=== PATIENT | male | born 1995 | race Caucasian/White ===

== ENCOUNTER 2019-09-29 15:29 | Inpatient (IN) | payer BC, OTHER ==
[2019-09-29] MEDS ORDERED: HYDROmorphone 0.5 MG/0.5 ML SYRINGE IVP STA ×4 (15:55→18:14)
[2019-09-29] MEDS ORDERED: SODIUM CHLORIDE 0.9% 1,000 ML IV STA (15:55)
[2019-09-29] MEDS ORDERED: ONDANSETRON 4 MG/2 ML VIAL IVP STA (15:55)
[2019-09-29 16:29] LABS: Basophils % (A) 0 %; Eosinophils % (A) 0 %; HCT 42.2 % (39.0-53.0); HGB 13.9 gm/dL (13.0-17.5); Lymphocytes # (A) 0.8 k/uL (1.0-4.8); Lymphocytes % (A) 4 %; MCH 28.8 pg (25.0-35.0); MCV 87.4 fL (80.0-100.0); Monocytes # (A) 1.2 k/uL (0-1.0); Monocytes % (A) 6 %; Neutrophils # (A) 17.4 k/uL (1.3-7.7); Neutrophils % (A) 89 %; Platelet Count 206 k/uL (150-450); RBC 4.82 m/uL (4.30-5.90); RDW 13.1 % (11.5-15.5); WBC 19.5 k/uL (3.8-10.6)
--- NOTE | 2019-09-29 16:47 | ED ---
General Adult HPI - General Chief complaint: Abdominal Pain Stated complaint: abd pain, nausea/vomiting Time Seen by Provider: 09/29/19 15:39 Source: patient, RN notes reviewed Mode of arrival: ambulatory Limitations: no limitations - History of Present Illness Initial comments: 24-year-old male presents to the emergency department for a chief complaint of abdominal pain. Patient has had abdominal pain in the lower abdomen worse on the right side since last night. States it has steadily worsened. Patient started to have vomiting with this today. Father states he thought it was likely a GI bug but wanted to make sure. Patient has not had any fevers.patient does not have a surgical history. Patient has no other complaints at this time including shortness of breath, chest pain, headache, or visual changes. - Related Data Home Medications Medication Instructions Recorded Confirmed No Known Home Medications 11/09/14 09/29/19 Allergies Allergy/AdvReac Type Severity Reaction Status Date / Time No Known Allergies Allergy Verified 09/29/19 18:08 Review of Systems ROS Statement: Those systems with pertinent positive or pertinent negative responses have been documented in the HPI. ROS Other: All systems not noted in ROS Statement are negative. Past Medical History Past Medical History: No Reported History History of Any Multi-Drug Resistant Organisms: None Reported Past Surgical History: No Surgical Hx Reported Past Psychological History: No Psychological Hx Reported Past Alcohol Use History: None Reported Past Drug Use History: None Reported - Past Family History Father Family Medical History: No Reported History General Exam Limitations: no limitations General appearance: alert, in no apparent distress Head exam: Present: atraumatic, normocephalic, normal inspection Eye exam: Present: normal appearance, PERRL, EOMI. Absent: scleral icterus, conjunctival injection, periorbital swelling ENT exam: Present: normal exam, mucous membranes moist Neck exam: Present: normal inspection. Absent: tenderness, meningismus, lymphadenopathy Respiratory exam: Present: normal lung sounds bilaterally. Absent: respiratory distress, wheezes, rales, rhonchi, stridor Cardiovascular Exam: Present: regular rate, normal rhythm, normal heart sounds. Absent: systolic murmur, diastolic murmur, rubs, gallop, clicks GI/Abdominal exam: Present: soft, tenderness (Tenderness noted to the right lower quadrant and suprapubic area.), normal bowel sounds. Absent: distended, guarding, rebound, rigid Neurological exam: Present: alert Course Vital Signs 09/29/19 09/29/19 09/29/19 15:30 17:20 18:12 Temperature 98.7 F 102.6 F H Pulse Rate 74 86 91 Respiratory 16 20 26 H Rate Blood Pressure 131/71 123/82 142/76 O2 Sat by Pulse 98 98 98 Oximetry 09/29/19 09/29/19 18:25 19:05 Temperature 102.6 F H 99.4 F Pulse Rate 85 86 Respiratory 24 18 Rate Blood Pressure 139/70 128/72 O2 Sat by Pulse 97 98 Oximetry Medical Decision Making - Medical Decision Making Vitals stable presentation to the emergency room. However patient does have tenderness to the right lower quadrant. Guarding present on exam. CBC reveals of the psychosis with a left shift. CMP unremarkable. CT abdomen and pelvis shows a dilated fluid-filled appendix with appendicoliths consistent with appen dicitis. Minimal free fluid in pelvis, ruptured appendix is possible. Patient was started on Zosyn. Dr. Rivers evaluated patient and contacted Dr. Schulte right away. He recommends continuing Zosyn and pain medication. Patient to be nothing by mouth, ice chips only. - Lab Data Result diagrams: 09/29/19 16:20 09/29/19 16:20 Lab Results 09/29/19 09/29/19 09/29/19 Range/Units 16:20 16:20 16:20 WBC 19.5 H (3.8-10.6) k/uL RBC 4.82 (4.30-5.90) m/uL Hgb 13.9 (13.0-17.5) gm/dL Hct 42.2 (39.0-53.0) % MCV 87.4 (80.0-100.0) fL MCH 28.8 (25.0-35.0) pg MCHC 33.0 (31.0-37.0) g/dL RDW 13.1 (11.5-15.5) % Plt Count 206 (150-450) k/uL Neutrophils % 89 % Lymphocytes % 4 % Monocytes % 6 % Eosinophils % 0 % Basophils % 0 % Neutrophils # 17.4 H (1.3-7.7) k/uL Lymphocytes # 0.8 L (1.0-4.8) k/uL Monocytes # 1.2 H (0-1.0) k/uL Eosinophils # 0.0 (0-0.7) k/uL Basophils # 0.0 (0-0.2) k/uL Sodium 136 L (137-145) mmol/L Potassium 4.0 (3.5-5.1) mmol/L Chloride 99 (98-107) mmol/L Carbon Dioxide 28 (22-30) mmol/L Anion Gap 9 mmol/L BUN 10 (9-20) mg/dL Creatinine 0.82 (0.66-1.25) mg/dL Est GFR (CKD-EPI)AfAm >90 (>60 ml/min/1.73 sqM) Est GFR (CKD-EPI)NonAf >90 (>60 ml/min/1.73 sqM) Glucose 130 H (74-99) mg/dL Plasma Lactic Acid Randell 1.0 (0.7-2.0) mmol/L Calcium 9.5 (8.4-10.2) mg/dL Total Bilirubin 1.4 H (0.2-1.3) mg/dL AST 17 (17-59) U/L ALT 15 (4-49) U/L Alkaline Phosphatase 52 (38-126) U/L Total Protein 7.3 (6.3-8.2) g/dL Albumin 4.7 (3.5-5.0) g/dL Amylase 64 (30-110) U/L Lipase 45 (23-300) U/L Disposition Clinical Impression: Appendicitis Narrative: possible rupture Disposition: ADMITTED IP TO THIS [facility] Is patient prescribed a controlled substance at d/c from ED?: No Time of Disposition: 18:18
[2019-09-29 16:58] LABS: ALT 15 U/L (4-49); AST 17 U/L (17-59); African American GFR (CKD) >90 (>60 ml/min/1.73 sqM); Albumin 4.7 g/dL (3.5-5.0); Alkaline Phosphatase 52 U/L (38-126); Amylase 64 U/L (30-110); Anion Gap 9 mmol/L; Blood Urea Nitrogen 10 mg/dL (9-20); Calcium 9.5 mg/dL (8.4-10.2); Carbon Dioxide 28 mmol/L (22-30); Chloride 99 mmol/L (98-107); Glucose 130 mg/dL (74-99); Non-African American GFR(CKD) >90 (>60 ml/min/1.73 sqM); Sodium 136 mmol/L (137-145); Total Bilirubin 1.4 mg/dL (0.2-1.3); Total Protein 7.3 g/dL (6.3-8.2)
--- NOTE | 2019-09-29 17:33 | CT ---
EXAMINATION TYPE: CT abdomen pelvis w con DATE OF EXAM: 09/29/2019 COMPARISON: None HISTORY: Right lower quadrant pain. CT DLP: 1044.3 mGycm Automated exposure control for dose reduction was used. CONTRAST: Performed with IV Contrast, patient injected with 100 mL of Isovue 300. Multiple axial sections were obtained from the diaphragm to the floor the pelvis with IV contrast. Lung bases are clear. There is no pleural effusion. Heart size is normal. There is no pericardial eff usion. Liver spleen stomach pancreas gallbladder appear normal. Bile ducts are not dilated. There is no adrenal mass. Kidneys show satisfactory contrast opacification. There is no hydronephrosis. Ureter s are not dilated. There is no retroperitoneal adenopathy. Bladder distends smoothly. There is no ing uinal hernia. There is small amount of free fluid in the pelvis. There is dilated fluid-filled appendix that measures up to 13 mm. There are 2 appendicoliths that barron sure up to 7 mm. There is no evidence of a bowel obstruction. There is no free air. There is no ascites. Lumbar vertebra have normal spacing and alignment. Posterior elements are intact. Bony pelvis is inta ct. IMPRESSION: Dilated fluid-filled appendix with appendicoliths consistent with appendicitis. Minimal free fluid in the pelvis. Ruptured appendix is possible.
[2019-09-29] MEDS ORDERED: PIPERACILLIN-TAZOBACTAM 3.375 GM in SODIUM CHLORIDE 0.9% 100 ML IVPB STA (17:51)
[2019-09-29] MEDS ORDERED: ACETAMINOPHEN IV (For NPO) 1,000 MG in EMPTY BAG 1 BAG IVPB STA (18:14)
[2019-09-29] MEDS ORDERED: KETOROLAC 30 MG/ML 1 ML VIAL IVP STA (18:17)
[2019-09-29] MEDS ORDERED: ONDANSETRON 4 MG/2 ML VIAL IVP PRN (18:18)
[2019-09-29] MEDS ORDERED: HYDROmorphone 0.5 MG/0.5 ML SYRINGE IVP PRN (18:18)
[2019-09-29] MEDS ORDERED: MORPHINE SULFATE 4 MG/ML SYRINGE IV PRN (18:18)
[2019-09-29] MEDS ORDERED: NALOXONE 0.4 MG/ML 1 ML VIAL IV PRN (18:18)
[2019-09-29] MEDS: SODIUM CHLORIDE 0.9% 1,000 ML IV SCH (18:23)
[2019-09-29] MEDS ORDERED: HEPARIN SODIUM,PORCINE 5,000 UNIT/ML 1 ML VIAL SQ STA (19:14)
--- NOTE | 2019-09-29 19:14 | P.GSHP ---
History of Present Illness H&P Date: 09/29/19 CHIEF COMPLAINT: Right lower quadrant abdominal pain with appendicitis for over 1 day. HISTORY OF PRESENT ILLNESS: The patient is a previously healthy 24-year-old male who presents with less than 1.5 day history of periumbilical to right lower quadrant abdominal pain that is crampy dull ache in nature. He reported feeling well as of yesterday afternoon about 3 PM when he had pizza. Two hours later, he had moderate to severe right lower quadrant abdominal pain. He had barely 2 hours of sleep last night. This morning, he reported some relief. The pain become progressively worse during the day hence his presentation to the emergency room. No reports of prior abdominal pain. No chills. White blood cell count on presentation almost 20,000. CT abdomen and pelvis consistent with possible ruptured appendicitis PAST MEDICAL HISTORY: See list and reviewed PAST SURGICAL HISTORY: See list and reviewed CURRENT MEDICATIONS: See list and reviewed ALLERGIES: See list and reviewed SOCIAL HISTORY: See list and reviewed FAMILY HISTORY: No Crohns disease and ulcerative colitis. REVIEW OF ORGAN SYSTEMS: CONSTITUTIONAL: Present fever, no chills. Denies recent weight loss. HEENT: Denies any trouble with vision, hearing or nosebleeds. No difficulty swallowing. LYMPHATIC: The patient denies any lumps and bumps around the neck. ENDOCRINE: Denies any thyroid disorders. Denies any blood sugar glucose intolerance. RESPIRATORY: Denies shortness of breath including chronic cough. CARDIOVASCULAR: Denies history of chest pain with exertion. GASTROINTESTINAL: Denies regurgitation of bile at night as well as intermittent nausea. No blood in stools. GENITOURINARY: Denies any blood in urine or increased urinary frequency. ` MUSCULOSKELETAL: Denies current joint arthritis. NEUROLOGIC: Denies any numbness or tingling along the distal extremities. No s eizure disorders or headaches. PSYCHIATRIC: Denies any depression or suicidal ideation. HEMATOLOGIC: Denies any abnormal bleeding or bruising. PHYSICAL EXAMINATION: GENERAL: A 24-year-old male in mild distress. Pleasant. HEENT: No sclera icterus. Extraocular movements grossly intact. Moist buccal mucosa. Head is atraumatic, normocephalic. Hears conversational speech. No nasal drainage. NECK: Supple without lymphadenopathy. No JV distention. CHEST: Non-labored respirations and equal bilateral excursions. CARDIOVASCULAR: Regular rate and rhythm. Palpable 2+ radial pulses. ABDOMEN: Soft, tender at the right lower quadrant with peritonitis MUSCULOSKELETAL: No clubbing, cyanosis or edema. NEUROLOGIC: No focal or lateralizing signs. PSYCH: Appropriate affect. Alert and oriented to person, place and time. SKIN: Well perfused. Good skin turgor. LABS: Reviewed. White blood cell count elevated over 19,000. STUDIES: CT of the abdomen and pelvis independently reviewed with appendicolith and dilation of the appendix. Free fluid identified within the pelvis tracking along the right paracolic gutter. This my independent interpretation. ASSESSMENT: 1. Acute appendicitis with sepsis PLAN: 1. I have discussed benefits and risks of laparoscopic appendectomy. 2. Bilateral SCDs. 3. Antibiotics intravenous to address moderate leukocytosis with underlying sepsis 4. Inpatient hospitalization described beyond 2 nights secondary to presentation of sepsis and possible rupture. 5. Patient is at elevated risk with rupture including delayed intra-abdominal abscesses also described and require close observation post-op for 2 to 4 weeks. 6. Possibility of prolonged antibiotics including oral versus IV antibiotics postop also reviewed. Thank you very much for allowing me to participate in the care of your patient. Past Medical History Past Medical History: No Reported History History of Any Multi-Drug Resistant Organisms: None Reported Past Surgical History: No Surgical Hx Reported Past Psychological History: No Psychological Hx Reported Past Alcohol Use History: None Reported Past Drug Use History: None Reported Medications and Allergies Home Medications Medication Instructions Recorded Confirmed Type No Known Home Medications 11/09/14 09/29/19 History Allergies Allergy/AdvReac Type Severity Reaction Status Date / Time No Known Allergies Allergy Verified 09/29/19 18:08 Surgical - Exam Vital Signs Temp Pulse Resp BP Pulse Ox 98.7 F 74 16 131/71 98 09/29/19 15:30 09/29/19 15:30 09/29/19 15:30 09/29/19 15:30 09/29/19 15:30 Results - Labs 09/29/19 16:20 09/29/19 16:20 Abnormal Lab Results - Last 24 Hours (Table) 09/29/19 09/29/19 Range/Units 16:20 16:20 WBC 19.5 H (3.8-10.6) k/uL Neutrophils # 17.4 H (1.3-7.7) k/uL Lymphocytes # 0.8 L (1.0-4.8) k/uL Monocytes # 1.2 H (0-1.0) k/uL Sodium 136 L (137-145) mmol/L Glucose 130 H (74-99) mg/dL Total Bilirubin 1.4 H (0.2-1.3) mg/dL Diabetes panel 09/29/19 Range/Units 16:20 Sodium 136 L (137-145) mmol/L Potassium 4.0 (3.5-5.1) mmol/L Chloride 99 (98-107) mmol/L Carbon Dioxide 28 (22-30) mmol/L BUN 10 (9-20) mg/dL Creatinine 0.82 (0.66-1.25) mg/dL Glucose 130 H (74-99) mg/dL Calcium 9.5 (8.4-10.2) mg/dL AST 17 (17-59) U/L ALT 15 (4-49) U/L Alkaline Phosphatase 52 (38-126) U/L Total Protein 7.3 (6.3-8.2) g/dL Albumin 4.7 (3.5-5.0) g/dL Calcium panel 09/29/19 Range/Units 16:20 Calcium 9.5 (8.4-10.2) mg/dL Albumin 4.7 (3.5-5.0) g/dL Pituitary panel 09/29/19 Range/Units 16:20 Sodium 136 L (137-145) mmol/L Potassium 4.0 (3.5-5.1) mmol/L Chloride 99 (98-107) mmol/L Carbon Dioxide 28 (22-30) mmol/L BUN 10 (9-20) mg/dL Creatinine 0.82 (0.66-1.25) mg/dL Glucose 130 H (74-99) mg/dL Calcium 9.5 (8.4-10.2) mg/dL Adrenal panel 09/29/19 Range/Units 16:20 Sodium 136 L (137-145) mmol/L Potassium 4.0 (3.5-5.1) mmol/L Chloride 99 (98-107) mmol/L Carbon Dioxide 28 (22-30) mmol/L BUN 10 (9-20) mg/dL Creatinine 0.82 (0.66-1.25) mg/dL Glucose 130 H (74-99) mg/dL Calcium 9.5 (8.4-10.2) mg/dL Total Bilirubin 1.4 H (0.2-1.3) mg/dL AST 17 (17-59) U/L ALT 15 (4-49) U/L Alkaline Phosphatase 52 (38-126) U/L Total Protein 7.3 (6.3-8.2) g/dL Albumin 4.7 (3.5-5.0) g/dL Assessment and Plan (1) Ruptured appendicitis Current Visit: Yes Status: Acute Code(s): K35.32 - ACUTE APPENDICITIS WITH PERF AND LOC PERITONITIS, W/O ABSCS SNOMED Code(s): 40227659 (2) Peritonitis Current Visit: Yes Status: Acute Code(s): K65.9 - PERITONITIS, UNSPECIFIED SNOMED Code(s): 75250988 (3) Peritonitis (acute) generalized Current Visit: Yes Status: Acute Code(s): K65.0 - GENERALIZED (ACUTE) PERITONITIS SNOMED Code(s): 95151036 (4) Sepsis Current Visit: Yes Status: Acute Code(s): A41.9 - SEPSIS, UNSPECIFIED ORGANISM SNOMED Code(s): 25505279
[2019-09-29] MEDS ORDERED: ONDANSETRON 4 MG/2 ML VIAL ONE (19:25)
[2019-09-29] MEDS ORDERED: ROCURONIUM BROMIDE 10 MG/ML 5 ML VIAL IV ONE (19:25)
[2019-09-29] MEDS ORDERED: HYDROmorphone (PF) 1 MG/ML ONE (19:25)
[2019-09-29] MEDS ORDERED: NEOSTIGMINE 1 MG/ML 10 ML VIAL ONE (19:25)
[2019-09-29] MEDS ORDERED: PROPOFOL 10 MG/ML 20 ML VIAL IV ONE (19:25)
[2019-09-29] MEDS ORDERED: DEXAMETHASONE SOD PHOSPHATE 10 MG/ML 1 ML VIAL ONE (19:25)
[2019-09-29] MEDS ORDERED: HEPARIN SODIUM,PORCINE 10,000 UNIT/ML 1 ML VIAL ONE (19:25)
[2019-09-29] MEDS ORDERED: LIDOCAINE 1% INJ 10MG/ML (20 ML MDV) ONE (19:25)
[2019-09-29] MEDS ORDERED: GLYCOPYRROLATE 0.2 MG/ML 2 ML VIAL ONE (19:25)
[2019-09-29] MEDS ORDERED: fentaNYL (PF) 50 MCG/ML 2 ML AMP ONE (19:25)
[2019-09-29] MEDS ORDERED: SUCCINYLCHOLINE CHLORIDE 100 MG/5 ML SYR IV ONE (19:25)
[2019-09-29] MEDS ORDERED: MIDAZOLAM 2 MG/2 ML VIAL ONE (19:25)
[2019-09-29] MEDS ORDERED: IV FLUID CONTINUATION 600 ML IV ONE (19:50)
[2019-09-29] MEDS ORDERED: BUPIVACAIN-EPI 0.25%-1:200,000 30 ML VIAL SQ ONE (20:14)
[2019-09-29] MEDS ORDERED: LACTATED RINGERS 1,000 ML IV ONE (20:31)
--- NOTE | 2019-09-29 21:07 | P.OP ---
Date of Procedure: 09/29/19 Description of Procedure: SURGEON: DARY CROOKS MD ELECTRONIC CONSOLE DISPLAY OPERATOR: None. PREOPERATIVE DIAGNOSES: 1. Acute appendicitis with sepsis 2. Generalized peritonitis 3. Leukocytosis with fever and tachypnea POSTOPERATIVE DIAGNOSES: 1. Acute rupture appendicitis with sepsis 2. Generalized peritonitis 3. Leukocytosis with fever and tachypnea 4. Intra-abdominal abscess with peritonitis. PROCEDURES PERFORMED: 1. Diagnostic laparoscopy. 2. Laparoscopic appendectomy. 3. Laparoscopic drainage of intra-abdominal abscess, 50 mL 4. Abdominal washout 2 L normal saline ANESTHESIA: General with 30 mL 0.25% Marcaine with epinephrine. ESTIMATED BLOOD LOSS: 10 mL. SPECIMENS REMOVED: 1. Appendix. 2. Aerobic and anaerobic cultures of intra-abdominal abscess, perforated appendicitis COMPLICATIONS: None. OPERATIVE FINDINGS: 1. Acute appendicitis with micro-perforation of the proximal body of the appendix. 2. Gallbladder dilated 3. Unremarkable small bowel and terminal ileum. 4. Terminal ileum unremarkable. 5. Liver unremarkable. 6. The colon was unremarkable 7. Purulent peritoneal fluid consistent with intra-abdominal abscess, 50 mL evacuated. 8. Bilateral indirect inguinal hernia INDICATIONS: The patient is an 24-year-old male who presents with 1.5 day history of right lower quadrant abdominal pain. He presented with leukocytosis, fevers, tachypnea and peritonitis. CT of the abdomen and pelvis was obtained consistent with acute appendicitis with possible rupture. Benefits and risks, including possibility of open technique were described at length. Informed consent was obtained. DESCRIPTION OR PROCEDURE: Patient was brought to the operating room, laid in supine position. After general induction, the abdomen was prepped and draped in standard sterile fashion. Prior to incision, a timeout protocol was confirmed with surgical team regarding patient's name including procedure to be performed. Preoperative medications of antibiotics were given intraoperatively. Additionally, bilateral SCDs were placed. A transverse 5-mm left upper quadrant incision was made after localizing the skin with anesthetic. A 0 degree 5 mm laparoscopic trocar entry was performed and entered into the peritoneal cavity. The abdomen was insufflated to 15 mmHg of pressure, which was tolerated well. Diagnostic laparoscopy demonstrated no injury to bowel, viscera or mesentery. The terminal ileum was unremarkable including small bowel. Gallbladder was distended. Colon was also unremarkable. Bilateral indirect inguinal hernias were identified. A 5 mm port was placed just above the pubis under direct visualization. A systematic view within the abdominal cavity was started with the small bowel which was unremarkable. The appendix was dilated consistent with microperforation along the proximal body of the appendix. The peritoneal fluid was purulent consistent with intra-abdominal abscess from perforated appendicitis. Another 12 mm port was placed along the left lateral abdominal wallfor firing of a stapler. A 45 mm Endo DEL echelon stapler was fired along the base of the appendix using a oliveros vascular load after mobilizing the mesoappendix using a Harmonic scalpel. The staple line was checked for hemostasis. The specimen was removed from the abdominal cavity via the 12 mm port. The fascial defect was less than 8 mm in size. To address the purulent peritoneal fluid, the abscess was evacuated with cultures obtained using Leukotrap followed by abdominal lavage 2 L normal saline until the aspirate was clear and dried using 4 x 4 gauze. Aerobic and anaerobic cultures were obtained. All instruments and pneumoperitoneum were evacuated from the abdominal cavity. A total of 30 mL 0.25% Marcaine with epinephrine was infiltrated in all wounds for postop analgesia. The skin was cleansed with normal saline and hydroperoxide. Exofin was applied to the skin after reapproximating the incisions with 4-0 Monocryl as described. At the end of the procedure, needle, sponge, and instrument count was verified correct by surgical nurse. The patient had tolerated the procedure well, was taken to the postanesthesia care unit in stable condition. Intraoperative abdominal films were described and discussed with family who were overall pleased with level of care.
[2019-09-29] MEDS ORDERED: METOCLOPRAMIDE 5 MG/ML 2 ML VIAL IVP PRN (22:00)
[2019-09-29] MEDS: KETOROLAC 30 MG/ML 1 ML VIAL IVP SCH (22:08)
[2019-09-29] MEDS: FAMOTIDINE 20 MG TAB PO SCH (22:20)
[2019-09-29] MEDS: DOCUSATE 100 MG CAP PO SCH (22:20)
[2019-09-29] MEDS: PIPERACILLIN-TAZOBACTAM 3.375 GM in SODIUM CHLORIDE 0.9% 100 ML IVPB SCH (23:40)
[2019-09-30] MEDS ORDERED: PROMETHAZINE 25 MG TAB PO PRN
[2019-09-30] MEDS: ACETAMINOPHEN TAB 325 MG TAB PO SCH ×2 (00:18→06:13)
[2019-09-30 02:02] LABS: Appearance,Urine Clear (Clear); Bilirubin,Urine Negative (Negative); Blood,Urine Negative (Negative); Color,Urine Yellow; Glucose,Urine (UA) 3+ (Negative); Ketones,Urine 1+ (Negative); Leukocyte Esterase,Urine Trace (Negative); Nitrite,Urine Negative (Negative); PH, Urine 6.5 (5.0-8.0); Protein,Urine 1+ (Negative); RBC,Urine 5 /hpf (0-5); Specific Gravity,Urine 1.038 (1.001-1.035); Urobilinogen,Urine <2.0 mg/dL (<2.0); WBC,Urine 9 /hpf (0-5)
[2019-09-30] MEDS: KETOROLAC 30 MG/ML 1 ML VIAL IVP SCH ×4 (03:29→21:10)
[2019-09-30] MEDS: SODIUM CHLORIDE 0.9% 1,000 ML IV SCH ×3 (05:48→23:48)
[2019-09-30 07:50] LABS: Basophils % (A) 0 %; Eosinophils % (A) 0 %; HCT 38.3 % (39.0-53.0); HGB 12.5 gm/dL (13.0-17.5); Lymphocytes # (A) 0.5 k/uL (1.0-4.8); Lymphocytes % (A) 3 %; MCH 29.3 pg (25.0-35.0); MCHC 32.7 g/dL (31.0-37.0); MCV 89.6 fL (80.0-100.0); Mean Platelet Volume 8.4; Monocytes # (A) 0.5 k/uL (0-1.0); Monocytes % (A) 2 %; Neutrophils # (A) 18.9 k/uL (1.3-7.7); Neutrophils % (A) 95 %; Platelet Count 168 k/uL (150-450); RBC 4.28 m/uL (4.30-5.90); RDW 13.2 % (11.5-15.5)
[2019-09-30] MEDS: metroNIDAZOLE-NS PMX 500 MG in SALINE 1 100ML.BAG IVPB SCH ×4 (08:44→23:31)
[2019-09-30] MEDS: FAMOTIDINE 20 MG TAB PO SCH ×2 (09:08→21:09)
[2019-09-30] MEDS: DOCUSATE 100 MG CAP PO SCH ×2 (09:08→21:09)
[2019-09-30] MEDS: PIPERACILLIN-TAZOBACTAM 3.375 GM in SODIUM CHLORIDE 0.9% 100 ML IVPB SCH ×3 (10:27→23:31)
[2019-09-30] MEDS ORDERED: HYDROcodone/APAP 5-325MG 1 EACH TAB PO PRN (10:49)
--- NOTE | 2019-09-30 10:50 | P.PN ---
Subjective Progress Note Date: 09/30/19 CHIEF COMPLAINT: Abdominal pain HISTORY OF PRESENT ILLNESS: 24-year-old male who is status post laparoscopic appendectomy. Postop day #1. Patient examined this morning at the bedside with Dr. Schulte. Patient reports his pain is tolerable. Denies nausea or vomiting. Vital signs are stable. He is afebrile. WBC 20.0. PHYSICAL EXAM: VITAL SIGNS: Reviewed GENERAL: Well-developed in no acute distress. HEENT: No sclera icterus. Extraocular movements grossly intact. Moist buccal mucosa. Head is atraumatic, normocephalic. Hears conversational speech. No nasal drainage. NECK: Supple without lymphadenopathy. CHEST: Non-labored respirations and equal bilateral excursions. CARDIOVASCULAR: Regular rate with regular rhythm. Palpable 2+ radial pulses. ABDOMEN: Soft. Nondistended. Surgical sites clean dry and intact without drainage or erythema. MUSCULOSKELETAL: No clubbing or cyanosis. NEUROLOGIC: No focal or lateralizing signs. Cranial nerves II through XII grossly intact. PSYCH: Appropriate affect. Alert and oriented to person, place and time. SKIN: Well perfused. Good skin turgor. ASSESSMENT: 1. Acute rupture appendicitis with sepsis 2. Generalized peritonitis 3. Leukocytosis with fever and tachypnea 4. Intra-abdominal abscess with peritonitis PLAN: -Continue antibiotics. Monitor WBC. Await cultures -Diet as tolerated -Pain control -Activity as tolerated -Incentive spirometer -Dr. Schulte recommends at least additional 48 hours of IV antibiotics before discharge Nurse practitioner note has been reviewed by physician. Signing provider agrees with the documented findings, assessment, and plan of care. Objective - Vital Signs Vital signs: Vital Signs Temp 98.3 F 09/30/19 05:00 Pulse 60 09/30/19 05:00 Resp 18 09/30/19 05:00 BP 105/62 09/30/19 05:00 Pulse Ox 97 09/30/19 05:00 Intake & Output 09/29/19 09/30/19 09/30/19 18:59 06:59 18:59 Intake Total 1250 Output Total 260 Balance 990 Weight 99.79 kg 99.79 kg Intake: IV 1250 Output: Urine 250 Estimated Blood Loss 10 Other: # Voids 1 - Labs CBC & Chem 7: 09/30/19 06:13 07/26/20 16:20 Labs: Abnormal Lab Results - Last 24 Hours (Table) 09/29/19 09/29/19 09/30/19 Range/Units 16:20 16:20 01:24 WBC 19.5 H (3.8-10.6) k/uL RBC (4.30-5.90) m/uL Hgb (13.0-17.5) gm/dL Hct (39.0-53.0) % Neutrophils # 17.4 H (1.3-7.7) k/uL Lymphocytes # 0.8 L (1.0-4.8) k/uL Monocytes # 1.2 H (0-1.0) k/uL Sodium 136 L (137-145) mmol/L Glucose 130 H (74-99) mg/dL Total Bilirubin 1.4 H (0.2-1.3) mg/dL Ur Specific [place] 1.038 H (1.001-1.035) Urine Protein 1+ H (Negative) Urine Glucose (UA) 3+ H (Negative) Urine Ketones 1+ H (Negative) Ur Leukocyte Esterase Trace H (Negative) Urine WBC 9 H (0-5) /hpf 09/30/19 Range/Units 06:13 WBC 20.0 H (3.8-10.6) k/uL RBC 4.28 L (4.30-5.90) m/uL Hgb 12.5 L (13.0-17.5) gm/dL Hct 38.3 L (39.0-53.0) % Neutrophils # 18.9 H (1.3-7.7) k/uL Lymphocytes # 0.5 L (1.0-4.8) k/uL Monocytes # (0-1.0) k/uL Sodium (137-145) mmol/L Glucose (74-99) mg/dL Total Bilirubin (0.2-1.3) mg/dL Ur Specific [place] (1.001-1.035) Urine Protein (Negative) Urine Glucose (UA) (Negative) Urine Ketones (Negative) Ur Leukocyte Esterase (Negative) Urine WBC (0-5) /hpf
[2019-09-30] MEDS: ENOXAPARIN 30 MG/0.3 ML SYRINGE SQ SCH (11:30)
[2019-09-30] MEDS: ACETAMINOPHEN TAB 500 MG TAB PO SCH ×3 (12:53→23:33)
[2019-10-01] MEDS: KETOROLAC 30 MG/ML 1 ML VIAL IVP SCH ×3 (03:08→16:32)
[2019-10-01] MEDS: metroNIDAZOLE-NS PMX 500 MG in SALINE 1 100ML.BAG IVPB SCH ×4 (05:40→23:21)
[2019-10-01] MEDS: ACETAMINOPHEN TAB 500 MG TAB PO SCH ×4 (05:40→23:20)
[2019-10-01] MEDS: ENOXAPARIN 30 MG/0.3 ML SYRINGE SQ SCH (07:56)
[2019-10-01] MEDS: FAMOTIDINE 20 MG TAB PO SCH ×2 (07:56→20:09)
[2019-10-01] MEDS: DOCUSATE 100 MG CAP PO SCH ×2 (07:57→20:09)
[2019-10-01] MEDS: PIPERACILLIN-TAZOBACTAM 3.375 GM in SODIUM CHLORIDE 0.9% 100 ML IVPB SCH ×3 (08:02→23:23)
[2019-10-01 08:54] LABS: Basophils % (A) 0 %; Eosinophils % (A) 0 %; HCT 36.8 % (39.0-53.0); HGB 11.6 gm/dL (13.0-17.5); Lymphocytes % (A) 7 %; MCH 28.7 pg (25.0-35.0); MCHC 31.6 g/dL (31.0-37.0); MCV 90.9 fL (80.0-100.0); Mean Platelet Volume 8.7; Monocytes # (A) 0.6 k/uL (0-1.0); Monocytes % (A) 4 %; Neutrophils # (A) 11.3 k/uL (1.3-7.7); Neutrophils % (A) 87 %; Platelet Count 162 k/uL (150-450); RBC 4.05 m/uL (4.30-5.90); RDW 13.4 % (11.5-15.5)
--- NOTE | 2019-10-01 10:46 | P.PN ---
Subjective Progress Note Date: 10/01/19 CHIEF COMPLAINT: Abdominal pain HISTORY OF PRESENT ILLNESS: 24-year-old male who is status post laparoscopic appendectomy. Postop day #2. Patient examined this morning at the bedside. Patient reports his pain is tolerable. Denies nausea or vomiting. Vital signs are stable. He is afebrile. WBC 13.0. PHYSICAL EXAM: VITAL SIGNS: Reviewed GENERAL: Well-developed in no acute distress. HEENT: No sclera icterus. Extraocular movements grossly intact. Moist buccal mucosa. Head is atraumatic, normocephalic. Hears conversational speech. No nasal drainage. NECK: Supple without lymphadenopathy. CHEST: Non-labored respirations and equal bilateral excursions. CARDIOVASCULAR: Regular rate with regular rhythm. Palpable 2+ radial pulses. ABDOMEN: Soft. Nondistended. Surgical sites clean dry and intact without drainage or erythema. MUSCULOSKELETAL: No clubbing or cyanosis. NEUROLOGIC: No focal or lateralizing signs. Cranial nerves II through XII grossly intact. PSYCH: Appropriate affect. Alert and oriented to person, place and time. SKIN: Well perfused. Good skin turgor. ASSESSMENT: 1. Acute rupture appendicitis with sepsis 2. Generalized peritonitis 3. Leukocytosis with fever and tachypnea 4. Intra-abdominal abscess with peritonitis PLAN: -Continue antibiotics. Monitor WBC. Cultures were obtained in the OR. However, spoke with microbiology department at hospital who states they do not have a specimen from surgery. -Diet as tolerated -Pain control -Activity as tolerated -Incentive spirometer -Possible discharge within the next 24-48 hours Nurse practitioner note has been reviewed by physician. Signing provider agrees with the documented findings, assessment, and plan of care. Objective - Vital Signs Vital signs: Vital Signs Temp 97.8 F 10/01/19 04:25 Pulse 53 L 10/01/19 04:25 Resp 18 10/01/19 04:25 BP 101/58 10/01/19 04:25 Pulse Ox 98 10/01/19 04:25 Intake & Output 09/30/19 10/01/19 10/01/19 18:59 06:59 18:59 Intake Total 1680 1600 120 Balance 1680 1600 120 Intake: Intake, IV Titration 600 1600 Amount Piperacillin-Tazobactam 3 100 200 .375 gm In Sodium Chloride 0.9% 100 ml @ 25 mls/hr IVPB Q8HR [facility] Rx# :[id number] Sodium Chloride 0.9% 1, 400 1200 000 ml @ 100 mls/hr IV . Q10H [facility] Rx#:[id number] metroNIDAZOLE-NS PMX 500 100 200 mg In Saline 1 100ml.bag @ 100 mls/hr IVPB Q6HR [facility] Rx#:[id number] Oral 1080 120 Other: Voiding Method Toilet # Voids 3 2 - Labs CBC & Chem 7: 10/01/19 08:11 09/29/19 16:20 Labs: Abnormal Lab Results - Last 24 Hours (Table) 10/01/19 Range/Units 08:11 WBC 13.0 H (3.8-10.6) k/uL RBC 4.05 L (4.30-5.90) m/uL Hgb 11.6 L (13.0-17.5) gm/dL Hct 36.8 L (39.0-53.0) % Neutrophils # 11.3 H (1.3-7.7) k/uL Microbiology - Last 24 Hours (Table) 09/29/19 18:16 Blood Culture - Preliminary Blood No Growth after 24 hours
[2019-10-01] MEDS: SODIUM CHLORIDE 0.9% 1,000 ML IV SCH ×2 (16:33→20:10)
--- NOTE | 2019-10-01 18:56 | P.PN ---
Progress Note - Text Progress Note Date: 10/01/19 He reports resolved right lower abdominal pain. He is passing flatus. WBC trending down. Cultures previously sent were processed under cytology. Await normal WBC and antibiotic management.
[2019-10-02] MEDS: ACETAMINOPHEN TAB 500 MG TAB PO SCH ×4 (05:00→22:10)
[2019-10-02] MEDS: SODIUM CHLORIDE 0.9% 1,000 ML IV SCH ×2 (05:14→17:13)
[2019-10-02] MEDS: metroNIDAZOLE-NS PMX 500 MG in SALINE 1 100ML.BAG IVPB SCH ×4 (05:15→22:10)
[2019-10-02 07:39] LABS: Basophils % (A) 0 %; Eosinophils % (A) 0 %; HCT 34.1 % (39.0-53.0); HGB 10.6 gm/dL (13.0-17.5); Lymphocytes # (A) 0.9 k/uL (1.0-4.8); Lymphocytes % (A) 11 %; MCH 28.4 pg (25.0-35.0); MCHC 31.1 g/dL (31.0-37.0); MCV 91.1 fL (80.0-100.0); Mean Platelet Volume 8.5; Monocytes # (A) 0.5 k/uL (0-1.0); Monocytes % (A) 6 %; Neutrophils # (A) 6.1 k/uL (1.3-7.7); Neutrophils % (A) 81 %; Platelet Count 154 k/uL (150-450); RBC 3.74 m/uL (4.30-5.90); RDW 13.3 % (11.5-15.5); WBC 7.6 k/uL (3.8-10.6)
[2019-10-02] MEDS: PIPERACILLIN-TAZOBACTAM 3.375 GM in SODIUM CHLORIDE 0.9% 100 ML IVPB SCH ×3 (07:54→22:10)
[2019-10-02] MEDS: DOCUSATE 100 MG CAP PO SCH ×2 (08:16→20:21)
[2019-10-02] MEDS: FAMOTIDINE 20 MG TAB PO SCH ×2 (08:17→20:20)
[2019-10-02] MEDS: ENOXAPARIN 30 MG/0.3 ML SYRINGE SQ SCH (08:17)
[2019-10-02] MEDS ORDERED: IBUPROFEN 600 MG TAB PO PRN (13:07)
--- NOTE | 2019-10-02 13:45 | P.DS ---
Providers Date of admission: 09/29/19 18:18 Expected date of discharge: 10/02/19 Attending physician: Pricilla Schulte Consults: 09/29/19 18:17 Consult Physician Routine Consulting Provider: [facility] Consult Reason/Comments: [facility] Do you want consulting provider notified?: Yes Primary care physician: Stated None Hospital Course: 24-year-old male who presented to the emergency room with a chief complaint of abdominal pain. Patient was found to have acute ruptured appendicitis with sepsis. He underwent laparoscopic appendectomy with Dr. Schulte. Patient is doing well postoperatively without any immediate complications. Tolerating diet. Pain is controlled on oral medications. Vital signs are stable. WBC is within normal limits. The patient is stable for discharge home today. Please see EMR for further hospital course details. Discharge Diagnosis: 1. Acute rupture appendicitis with sepsis 2. Generalized peritonitis 3. Leukocytosis with fever and tachypnea 4. Intra-abdominal abscess with peritonitis Nurse practitioner note has been reviewed by physician. Signing provider agrees with the documented findings, assessment, and plan of care. Plan - Discharge Summary New Discharge Prescriptions: New Amoxic-Pot Clav 875-125Mg [Augmentin 875-125] 1 tab PO Q12HR #10 tab Acetaminophen Tab [Tylenol Tab] 650 mg PO Q4H PRN #30 tablet PRN Reason: Pain Discharge Medication List Acetaminophen Tab [Tylenol Tab] 650 mg PO Q4H PRN #30 tablet 10/02/19 [Rx] Amoxic-Pot Clav 875-125Mg [Augmentin 875-125] 1 tab PO Q12HR #10 tab 10/02/19 [Rx] Follow up Appointment(s)/Referral(s): Pricilla Schulte MD [STAFF PHYSICIAN] - 10/08/19 None,Stated [Primary Care Provider] - 1-2 days Activity/Diet/Wound Care/Special Instructions: No lifting over 10 pounds You may shower. No soaking or tub baths Very light activity until you are reevaluated at your follow up appointment with your surgeon
[2019-10-02 20:51] VITALS: RESP 16
[2019-10-02] MEDS ORDERED: DEXAMETHASONE SOD PHOSPHATE 10 MG/ML 1 ML VIAL IV STA (21:37)
[2019-10-02] MEDS ORDERED: SCOPOLAMINE 1.5MG/72HR PATCH TRANSDERM STA (21:37)
--- NOTE | 2019-10-02 21:43 | P.PN ---
Progress Note - Text Progress Note Date: 10/02/19 Called floor to speak to evening shift RN. Patient had emesis within 30 minutes of conversation. Day shift nurse held scheduled antibiotics including tylenol from the afternoon. Now patient is running low grade temp, under 100.0. New orders for decadron, scopolamine patch written. Order to document temperature after incentive spirometry use placed. Also immediate resumption of antibiotics and tylenol described. Discharge order discontinued. Will re-order CBC. Lovenox held due to Hgb decline, no signs of bleeding. IVF decreased.
[2019-10-02] MEDS ORDERED: SODIUM CHLORIDE 0.9% 1,000 ML IV SCH (21:45)
[2019-10-02] MEDS ORDERED: ONDANSETRON 4 MG/2 ML VIAL IVP PRN (21:47)
[2019-10-02] MEDS: PANTOPRAZOLE 40 MG/10 ML VIAL IVP SCH (22:06)
[2019-10-02] MEDS: METOCLOPRAMIDE 5 MG/ML 2 ML VIAL IVP SCH (22:06)
[2019-10-03] MEDS: METOCLOPRAMIDE 5 MG/ML 2 ML VIAL IVP SCH ×2 (03:39→09:33)
[2019-10-03] MEDS: ACETAMINOPHEN TAB 500 MG TAB PO SCH (05:03)
[2019-10-03] MEDS: metroNIDAZOLE-NS PMX 500 MG in SALINE 1 100ML.BAG IVPB SCH (05:04)
[2019-10-03 05:21] VITALS: BP 107/62; PULSE 54; TEMP 97.4
[2019-10-03 07:28] LABS: Basophils % (A) 0 %; Eosinophils % (A) 0 %; HCT 36.8 % (39.0-53.0); HGB 11.6 gm/dL (13.0-17.5); Lymphocytes # (A) 0.5 k/uL (1.0-4.8); Lymphocytes % (A) 7 %; MCH 28.7 pg (25.0-35.0); MCHC 31.6 g/dL (31.0-37.0); MCV 90.9 fL (80.0-100.0); Mean Platelet Volume 7.9; Monocytes # (A) 0.2 k/uL (0-1.0); Monocytes % (A) 2 %; Neutrophils # (A) 6.6 k/uL (1.3-7.7); Neutrophils % (A) 90 %; Platelet Count 169 k/uL (150-450); RBC 4.05 m/uL (4.30-5.90); RDW 13.1 % (11.5-15.5); WBC 7.3 k/uL (3.8-10.6)
[2019-10-03 07:29] LABS: African American GFR (CKD) >90 (>60 ml/min/1.73 sqM); Anion Gap 7 mmol/L; Blood Urea Nitrogen 13 mg/dL (9-20); Calcium 8.5 mg/dL (8.4-10.2); Carbon Dioxide 26 mmol/L (22-30); Chloride 104 mmol/L (98-107); Glucose 124 mg/dL (74-99); Magnesium 2.1 mg/dL (1.6-2.3); Non-African American GFR(CKD) >90 (>60 ml/min/1.73 sqM); Potassium 4.6 mmol/L (3.5-5.1); Sodium 137 mmol/L (137-145)
[2019-10-03] MEDS: PIPERACILLIN-TAZOBACTAM 3.375 GM in SODIUM CHLORIDE 0.9% 100 ML IVPB SCH (07:37)
[2019-10-03] MEDS: PANTOPRAZOLE 40 MG/10 ML VIAL IVP SCH (07:37)
[2019-10-03 07:49] LABS: C Reactive Protein 176.7 mg/L (<10.0)
--- NOTE | 2019-10-03 15:46 | P.PN ---
Progress Note - Text Progress Note Date: 10/03/19 Patients discharge was held yesterday secondary to nausea and low grade temp. Patient re-evaluated this morning with Dr. Schulte. He received his IV antibiotics. No further fevers. No nausea or vomiting. Tolerating diet. He is stable for discharge home today. Please refer to discharge summary dictated 10-02-2019.
== END 2019-10-03 11:26 | disposition home or self-care (01) | DRG 853 ==
LOC: EC 15:29 → 5NMEDONC 18:18
PROVIDERS: ADMIT Surgery Plastic and Reconstructive Surgery; ATTEND Surgery Plastic and Reconstructive Surgery
PROC: 0DTJ4ZZ Resection of Appendix, Percutaneous Endoscopic Approach (ICD-10-PCS; principal; 2019-09-29 18:47)
DX: A41.9 Sepsis, unspecified organism (principal); K35.21 Acute appendicitis with generalized peritonitis, with abscess; K40.20 Bilateral inguinal hernia, without obstruction or gangrene, not specified as recurrent; Z11.59 Encounter for screening for other viral diseases
CPT/HCPCS: 36415; 74177; 80048; 80053; 81001; 82150; 83605; 83690; 83735; 85025; 86140; 87040; 88108; 88304; 88305; 96361; 96365; 96368; 96375; 96376; 99285

== ENCOUNTER 2020-02-03 09:05 | Day surgery (SDC) | payer OTHER ==
[2020-01-29 10:42] VITALS: BMI 25.0
[~2020-02-03 09:05] MED LIST: DEXAMETHASONE SOD PHOSPHATE 4 MG/ML 1 ML VIAL IV ONE; HEPARIN SODIUM,PORCINE 5,000 UNIT/ML 1 ML VIAL SQ PRN; HYDROmorphone 0.5 MG/0.5 ML SYRINGE IVP PRN; LACTATED RINGERS 1,000 ML IV SCH; LIDOCAINE 1% (10MG/ML) FOR IV START INTRADERMA PRN; MIDAZOLAM 2 MG/2 ML VIAL IV PRN; ONDANSETRON 4 MG/2 ML VIAL IVP ONE
[2020-02-03] MEDS ORDERED: TAMSULOSIN 0.4 MG CAP.ER.24H PO STA (09:33)
[2020-02-03] MEDS ORDERED: ACETAMINOPHEN TAB 500 MG TAB PO STA (09:33)
[2020-02-03] MEDS ORDERED: GABAPENTIN 300 MG CAP PO STA (09:33)
--- NOTE | 2020-02-03 09:33 | P.GSHP ---
History of Present Illness H&P Date: 02/03/20 CHIEF COMPLAINT: Inguinal hernia, bilateral HISTORY OF PRESENT ILLNESS: The patient is a 24-year-old male who presents with a history of swelling and pain along the groins. He's noted increased swelling including pain of the area. Now he presents for repair of his inguinal hernia. PAST MEDICAL HISTORY: Please see list. PAST SURGICAL HISTORY: Please see list. MEDICATIONS: Please see list. ALLERGIES: Please see list. SOCIAL HISTORY: No illicit drug use FAMILY HISTORY: No reports of Crohn disease or ulcerative colitis. REVIEW OF ORGAN SYSTEMS: CONSTITUTIONAL: No reports of fevers or chills. No reports of weight loss despite prior attempts. GI: Denies any blood in stools or constipation. PHYSICAL EXAM: VITAL SIGNS: Stable GENERAL: Well-developed pleasant male in no acute distress. HEENT: No scleral icterus. Extraocular movements grossly intact. Moist buccal mucosa. NECK: Supple without lymphadenopathy. CHEST: Unlabored respirations. Equal bilateral excursions. CARDIOVASCULAR: Regular rate and rhythm. Distal 2+ pulses. ABDOMEN: Soft, nondistended. No peritoneal signs. Palpable defect of the groin MUSCULOSKELETAL: No clubbing, cyanosis, or edema. ASSESSMENT: 1. Inguinal hernia, bilateral PLAN: 1. Recommend proceeding with a robotic inguinal repair with mesh with bilateral approach. 2. Benefits and risks of surgical intervention was discussed including possibility of open technique. 3. DVT prophylaxis. 4. Antibiotic prophylaxis. Past Medical History Past Medical History: No Reported History History of Any Multi-Drug Resistant Organisms: None Reported Past Surgical History: Appendectomy Past Anesthesia/Blood Transfusion Reactions: No Reported Reaction Smoking Status: Never smoker - Past Family History Father Family Medical History: No Reported History Medications and Allergies Home Medications Medication Instructions Recorded Confirmed Type Escitalopram [Lexapro] 20 mg PO QAM 01/29/20 02/03/20 History Allergies Allergy/AdvReac Type Severity Reaction Status Date / Time No Known Allergies Allergy Verified 01/29/20 10:39 Surgical - Exam Vital Signs Temp Pulse Resp BP Pulse Ox 97.9 F 77 16 124/67 97 02/03/20 09:27 02/03/20 09:27 02/03/20 09:27 02/03/20 09:27 02/03/20 09:27
[2020-02-03 10:13] LABS: Basophils # (A) 0.1 k/uL (0-0.2); Basophils % (A) 1 %; Eosinophils # (A) 0.1 k/uL (0-0.7); Eosinophils % (A) 2 %; HCT 47.2 % (39.0-53.0); HGB 15.9 gm/dL (13.0-17.5); Lymphocytes # (A) 1.6 k/uL (1.0-4.8); Lymphocytes % (A) 24 %; MCH 29.9 pg (25.0-35.0); MCHC 33.7 g/dL (31.0-37.0); MCV 88.8 fL (80.0-100.0); Mean Platelet Volume 7.3; Monocytes # (A) 0.4 k/uL (0-1.0); Monocytes % (A) 7 %; Neutrophils # (A) 4.2 k/uL (1.3-7.7); Neutrophils % (A) 65 %; Platelet Count 209 k/uL (150-450); RBC 5.31 m/uL (4.30-5.90); RDW 13.5 % (11.5-15.5); WBC 6.5 k/uL (3.8-10.6)
[2020-02-03 10:39] LABS: ALT 26 U/L (4-49); AST 22 U/L (17-59); African American GFR (CKD) >90 (>60 ml/min/1.73 sqM); Albumin 4.9 g/dL (3.5-5.0); Alkaline Phosphatase 50 U/L (38-126); Anion Gap 9 mmol/L; Blood Urea Nitrogen 17 mg/dL (9-20); Calcium 9.9 mg/dL (8.4-10.2); Carbon Dioxide 30 mmol/L (22-30); Chloride 103 mmol/L (98-107); Glucose 90 mg/dL (74-99); Non-African American GFR(CKD) >90 (>60 ml/min/1.73 sqM); Potassium 4.2 mmol/L (3.5-5.1); Sodium 142 mmol/L (137-145); Total Bilirubin 1.2 mg/dL (0.2-1.3)
[2020-02-03] MEDS ORDERED: MIDAZOLAM 2 MG/2 ML VIAL ONE (11:00)
[2020-02-03] MEDS ORDERED: NEOSTIGMINE 1 MG/ML 10 ML VIAL ONE (11:00)
[2020-02-03] MEDS ORDERED: LIDOCAINE 1% INJ 10MG/ML (20 ML MDV) ONE (11:00)
[2020-02-03] MEDS ORDERED: GLYCOPYRROLATE 0.2 MG/ML 2 ML VIAL ONE (11:00)
[2020-02-03] MEDS ORDERED: fentaNYL (PF) 50 MCG/ML 2 ML AMP ONE (11:00)
[2020-02-03] MEDS ORDERED: DEXAMETHASONE SOD PHOSPHATE 4 MG/ML 1 ML VIAL ONE (11:00)
[2020-02-03] MEDS ORDERED: PROPOFOL 10 MG/ML 20 ML VIAL IV ONE (11:00)
[2020-02-03] MEDS ORDERED: ROCURONIUM 10 MG/ML (10 ML VIAL) IV ONE (11:00)
[2020-02-03] MEDS ORDERED: ROPIVACAINE 5 MG/ML 30 ML VIAL ONE (11:00)
[2020-02-03] MEDS ORDERED: SUCCINYLCHOLINE CHLORIDE 100 MG/5 ML SYR IV ONE (11:00)
[2020-02-03] MEDS ORDERED: BUPIVACAINE (PF) 0.25% 30 ML VIAL SQ ONE (11:37)
[2020-02-03] MEDS ORDERED: LACTATED RINGERS 1,000 ML IV ONE (11:41)
[2020-02-03 12:53] VITALS: TEMP 97.4
--- NOTE | 2020-02-03 13:04 | P.OP ---
Date of Procedure: 02/03/20 Description of Procedure: SURGEON: PRICILLA SCHULTE MD PREOPERATIVE DIAGNOSES: 1. Initial left inguinal hernia 2. Depressive disorder POSTOPERATIVE DIAGNOSES: 1. Initial left inguinal hernia, indirect 2 cm, reducible 2. Depressive disorder OPERATION: 1. Robotic assisted [employer] laparoscopic reduction and repair of left inguinal hernia repair with ventralight ST mesh, 11.4 cm. Anesthesia: GETA, local Estimated Blood Loss (ml): 5 Pathology: other (Left inguinal sac) Condition: stable Disposition: floor COMPLICATIONS: None. Operative Findings: 1. Large left inguinal indirect hernia, 2 cm, Nyhus type II INDICATIONS: The patient is a 24-year-old gentleman who presents with history of left inguinal hernia. Now presents for definitive surgical intervention. Laparoscopic versus open and robotic approaches were discussed. Benefits and risks including bleeding, infection, injury to the vas deferens as well as sterility and chronic groin pain were reviewed. Placement of mesh was also described. Informed consent was obtained. DESCRIPTION: In the preoperative area, the patient was marked with indelible marker along the left groin. The patient was brought to the operating room and laid in supine position. After general induction, the abdomen had been prepped and draped in standard sterile fashion. Ioban draping was also placed. Prior to incision, a timeout protocol was confirmed with surgical team regarding patient's name including procedures to be performed and location along the left groin. Initial positioning for the robotic assisted ports were selected whereby 20 cm superior to the target anatomy, 0 degree 5 mm laparoscopic trocar entry was performed at the left upper quadrant. The abdomen was insufflated to 15 mmHg which he had tolerated well. Diagnostic laparoscopy demonstrated indirect left inguinal hernia. The right groin was unremarkable. Next, along the epigastrium, 8 mm robot trocar was placed. An 8-mm robotic trocar was placed under direct visualization at the right upper quadrant. The 5 mm port was exchanged for a 8 mm trocar. All trocars were positioned between 8 to 10-cm apart from each other. The patient was placed in steep reverse Trendelenburg position, 7. The [employer] XI robot was primed, draped, prepared for docking along the upper abdomen of the patient. I then went to the [employer] Xi console. The permit review assistant was at bedside for exchange of the robot arms and equipment. At the left groin, over 2 cm indirect inguinal hernia was identified. The hernia sac was evaginated whereby the peritoneum was scored using Endo scissors with cautery. Once completely reduced into the abdominal cavity, the peritoneal sac of the hernia was identified. The sac was resected and then passed off for further pathological analysis. The size of the hernia defect was 2 cm with intraoperative films obtained. Using a nonabsorbable 2-0 VLOC, the peritoneal defect of the left inguinal hernia site was closed using a pursestring suture. The defect was found to be completely closed with complete reduction of the left inguinal hernia was confirmed. As an onlay, an 11.[address] mesh by [employer] was cut in half and entered into the abdominal cavity via the 8 mm trocar. The mesh was tacked to the pelvis using nonabsorbable 2-0 VLOC x 9-inch length sutures. The robot was undocked from the patient's bedside. I then rescrubbed into the case. Insufflation was released from the abdominal cavity and all instruments were removed from the abdominal cavity. Additional palm pressure was applied along the left groin as well as releasing any air along the scrotum and left groin. The rest of incisions were reapproximated using 4-0 Monocryl in a running subcuticular fashion. Local anesthetic was placed along the incision including for a groin block. Incisions were cleansed using dilute hydrogen peroxide. Liquid glue was applied to the skin. At the end of the procedure, the needle, sponge and instrument counts had been verified correct by the prototype technician. The patient had tolerated the procedure well and was taken to the postanesthesia care unit in stable condition. Intraoperative findings were described to the patient's family who were pleased with the level of care. Plan - Discharge Summary Discharge Rx Participant: Yes New Discharge Prescriptions: New Ibuprofen [Motrin] 600 mg PO Q8HR PRN #30 tab PRN Reason: Pain Acetaminophen Tab [Tylenol Tab] 1,000 mg PO Q6HR PRN #30 tablet Continue Escitalopram [Lexapro] 20 mg PO QAM Discharge Medication List Escitalopram [Lexapro] 20 mg PO QAM 01/29/20 [History] Acetaminophen Tab [Tylenol Tab] 1,000 mg PO Q6HR PRN #30 tablet 02/03/20 [Rx] Ibuprofen [Motrin] 600 mg PO Q8HR PRN #30 tab 02/03/20 [Rx] Follow up Appointment(s)/Referral(s): Pricilla Schulte MD [STAFF PHYSICIAN] - 02/11/20 Patient Instructions/Handouts: Laparoscopic Herniorrhaphy (IP), Inguinal Hernia (DC), *[facility]gery [facility] - Managing Your Pain After Surgery Without Opioids Activity/Diet/Wound Care/Special Instructions: Using antibacterial soap. No lifting over 4 pounds 4 weeks, Feb 22July shower. No bathtub soaks for 2 weeks, Feb 16. Use ice along incisions for the today to prevent swelling. Discharge Disposition: HOME SELF-CARE
[2020-02-03 13:16] VITALS: RESP 16
[2020-02-03] MEDS ORDERED: IBUPROFEN 200 MG TAB PO ONE (14:00)
[2020-02-03 14:42] VITALS: BP 115/74; PULSE 77
--- NOTE | 2020-02-04 11:05 | P.ANPRN ---
Procedure Note - Anesthesia - Nerve Block Performed Bilateral Transversus Abdominis Single Time Out Performed: Yes Date of Procedure: 02/03/20 Procedure Start Time: : Procedure Stop Time: : Location of Patient: PreOp Indication: Acute Post-Operative Pain, Requested by Surgeon Sedation Type: Sedate with meaningful contact maintained Preparation: Sterile Prep Position: Supine Needle Types: Pajunk Needle Gauge: 21 Ultrasound used to visualize needle placement: Yes Ultrasound used to observe medication spread: Yes Blood Aspirated: No Pain Paresthesia on Injection Noted: No Resistance on Injection: Normal Image Stored and Saved: Yes Events: Uneventful and Well Tolerated (ropi .5% 20cc plus dexamethasone 4mg bilaterally)
== END 2020-02-03 15:28 | disposition home or self-care (01) ==
LOC: OR 09:05
PROVIDERS: ATTEND Surgery Plastic and Reconstructive Surgery
DX: K40.90 Unilateral inguinal hernia, without obstruction or gangrene, not specified as recurrent (principal); F32.9 Major depressive disorder, single episode, unspecified; Z90.49 Acquired absence of other specified parts of digestive tract; Z79.899 Other long term (current) drug therapy
CPT/HCPCS: 49650; S2900; 64488; 80053; 85025; 88302